=== PATIENT | female | born 1985 | race Caucasian/White ===

== ENCOUNTER 2022-08-23 15:01 | Outpatient (CLI) | payer OTHER, SELFPAY ==
--- NOTE | 2022-08-23 15:00 | CRLHL7_ITS ---
For Patients: As a result of the Cures Act, medical imaging exams and procedure reports are released immediately into your electronic medical record. You may view this report before your referring provider. If you have questions, please contact your health care provider. INDICATION: First trimester scan, establish dates. COMPARISON: None. TECHNIQUE: Real-time lainez-scale imaging of the pelvis was performed. FINDINGS: Sonographic imaging demonstrates a single living intrauterine gestation. The embryo demonstrates a regular cardiac rate measuring 180 beats per minute. The embryo`s crown-rump length measurement of 3.1 cm corresponds to a gestational age of 10 weeks 0 days with a sonographic due date of 03/21/2023. There is a normal-appearing yolk sac. There are no gross abnormalities noted within the embryo at this early state of development. The gestational sac has a normal appearance. There is a complex lower uterine segment perigestational hemorrhage measuring 2.3 x 1.2 x 2.4 cm. The amount of fluid within the sac appears appropriate for gestational age. The cervix is closed. The myometrium appears normal. The ovaries are of normal size. There are no suspicious fluid collections noted in the cul-de-sac. IMPRESSION: Single living intrauterine with sonographic gestational age 10 weeks 0 days and a sonographic due date 03/21/2023. Complex lower uterine segment subchorionic hemorrhage measuring 2.3 x 1.2 x 2.4 cm. Follow-up in 1-2 weeks suggested. Dictated by Calin Apodaca MD @ 08/25/2022 11:37:41 AM (Electronically Signed)
== END 2022-08-23 15:02 | disposition home or self-care (01) ==
LOC: US 15:02
PROVIDERS: Visit Provider Physician Assistant
DX: Z34.91 Encounter for supervision of normal pregnancy, unspecified, first trimester (principal); O20.9 Hemorrhage in early pregnancy, unspecified; Z3A.10 10 weeks gestation of pregnancy
CPT/HCPCS: 76817; 82306; 82607; 86592; 86703; 86762; 86787; 86803; 86850; 86900; 86901; 87086; 87340; 87491; 87591

== ENCOUNTER 2022-11-02 14:08 | Outpatient (CLI) | payer OTHER, SELFPAY | END 2022-11-02 14:09 | disposition home or self-care (01) | LOC: US 14:10 | PROVIDERS: Visit Provider Pediatrics Neonatal-Perinatal Medicine | DX: O09.522 Supervision of elderly multigravida, second trimester (principal); Z3A.20 20 weeks gestation of pregnancy | CPT/HCPCS: 76811 ==

== ENCOUNTER 2022-12-28 14:05 | Outpatient (CLI) | payer BC, SELFPAY | END 2022-12-28 14:06 | disposition home or self-care (01) | PROVIDERS: Visit Provider Obstetrics & Gynecology | DX: Z34.93 Encounter for supervision of normal pregnancy, unspecified, third trimester (principal); Z3A.28 28 weeks gestation of pregnancy | CPT/HCPCS: 86592 ==

== ENCOUNTER 2023-03-08 10:57 | Inpatient (IN) | payer BC, SELFPAY ==
[2023-03-08] VITALS (16 sets, daily range): BP systolic 98–156; BP diastolic 61–73; PULSE 58–76; RESP 16; TEMP 36.4–36.6; O2SAT 18–100
[2023-03-08 10:14] LABS: Amnisure Rom* POSITIVE
--- NOTE | 2023-03-08 12:22 | P.LDBA_ITS ---
Subjective History of Present Illness Narrative: Reshma is a 37 yo at 38 0/7 weeks gestation being admitted to Labor and Delivery for PROM that occurred at 1 am. Patient reports she was awoken from sleep to use the bathroom and had a gush of clear fluid on the way. She then noticed more leaking when she was returning to bed. She was not able to sleep so she did some work and her morning workout. During her workout routine she had a larger gush that she then thought she should call. She called about 6 am and presented around 9 am. She continues to leak clear fluid. She reports minor cramping but no regular contractions. Her full history and physical was dictated by RUSSELL Garza on 03/01/2023. Please see this for details. OB PROBLEM LIST 1. Clomid +IUI . Primary infertility, unexplained 2. AMA * Maternity T21: Negative * Level 2 ultrasound: Preliminary result by Dr. Real small echogenic intracardiac foci w/o any other markers, not noted in final report. * Recommend growth US at 32 weeks due to hx of COVID and AMA: 24%ile 3. History of asthma, no symptoms or medication use for several years 4. History of LEEP, 2010. Normal Pap with negative HPV 01/25/2021 5. Vegan diet * Normal hemoglobin, vitamin B12, and vitamin-D at 1st OB 6. Aspirin 81 mg starting at 12 weeks: AMA, 1st , history of preeclampsia/sister 7. Covid positive @ 15w 3d. Consider growth u/s @ 28-32 & 36 weeks. Plan growth at 34 weeks due to scheduling conflict: 02/08, 24%ile Growth at 38 weeks for hx of COVID can be considered. Flu shot: 08/23/2022 COVID vaccinated and booster x1 Tdap: 12/28/22 OB - Problem Based A/P Additional Plan (1) PROM (premature rupture of membranes): Status: Acute (2) 38 weeks gestation of : Status: Acute (3) AMA (advanced maternal age) multigravida 35+: Status: Acute (4) History of loop electrical excision procedure (LEEP): Status: Acute (5) History of asthma: Problem details: Has not had symptoms or needed medication in years. Status: Acute Plan ASSESSMENT:? 37 at 38 0/7 weeks gestation? complicated by:?IUI , AMA, hx of asthma, hx of leep, hx of COVID Labor type: Spontaneous, Early labor? Category 1 FHR pattern.?? Labor complicated by: PROM? GBS negative? ? PLAN:? 1. Routine intrapartum cares as ordered. Discussed options and recommendations. Reviewed 12 hours of expectant management vs starting medication to augment labor. She does not desire to start medication at this time. We did discuss expectant management for a max of 24 hours but would encourage medication augmentation after 12 hours. She desires to wait and wants to encourage labor without medication. Discussed nipple stim, activity, rest, and labor warm-up. 2. Monitoring per policy, intermittent? 3. Planning unmedicated . Desires water . Consent signed. Hep C negative. Candidate for analgesia of choice.?? 4. Patient encouraged to reposition and ambulate to promote physiologic labor and .? 5. Anticipate ? Delivery/Labor/Induction Plan Plan: expectant management OB Exam Physical Exam Vital signs: Temp Pulse BP Pulse Ox 97.9 F 69 119/71 100 03/08/23 11:07 03/08/23 09:24 03/08/23 09:24 03/08/23 09:27 Narrative: Vitals Reviewed Constitutional:? Alert and oriented x3 HEENT:? Normocephalic, atraumatic Neck:? Supple Lungs:? Clear to auscultation bilaterally Heart:? Regular rate and rhythm, no murmur, rub or gallop Abdomen:? Soft, nontender, and gravid. Vertex by Dc's, confirmed with cervical exam. Extremities:? No edema or erythema Cervix: 2 cm/70%/-2 station/vertex NST: 125 bpm/moderate variability/15x15 accelerations/No decelerations/irregular mild contractions
[2023-03-08 22:45] LABS: Basophils Absolute Auto 0.04 K/uL (0.00-0.30); Basophils Percent Auto 0.5 % (0.0-3.0); Eosinophils Absolute Auto 0.08 K/uL (0.00-0.50); Hematocrit 33.6 % (33.0-51.0); Hemoglobin* 11.6 gm/dL (12.0-16.0); Immature Granulocytes Pct Auto 1.3 %; Lymphocytes Absolute Auto 1.93 K/uL (0.90-2.90); Lymphocytes Percent Auto 24.5 % (20-44); Mean Corpuscular HGB Conc 35 gm/dL (32-36); Mean Corpuscular Hemoglobin 31 pg (26-34); Mean Corpuscular Volume 90 fL (80-100); Monocytes Percent Auto 6.4 % (0.0-11.0); Neutrophils Absolute Auto 5.22 K/uL (1.7-7.0); Neutrophils Percent Auto 66.3 % (42.0-72.0); Platelet Count* 160 K/uL (140-440); RDW Coefficient of Variation % 12.2 % (11.5-15.5); Red Blood Count 3.74 m/uL (4.00-5.20); White Blood Count* 7.87 K/uL (4.50-11.00)
[2023-03-08] MEDS: OXYTOCIN 30 unit/500 ML in NS 30 UNIT/500 ML BAG IVPB (23:04)
[2023-03-08] MEDS: LACTATED RINGERS 1000 ML 1,000 ML 125 ML IV (23:04)
--- NOTE | 2023-03-08 23:18 | PM.OBPNL ---
Subjective Date Seen: 03/08/23 Narrative: Reshma is a 37 yo at 38 0/7 weeks gestation that was admitted earlier for PROM of clear fluid that occurred at 0100 am on 03/08. She has been very active today by walking, doing labor warm up, lunges, and miles circuit. She reports feeling mild cramping but not contractions. She is coping well with labor pain/contractions. She is currently being supported by her partner. She is hesitant about using medication to encourage labor and has questions about its use and how it may impact her labor or her having a waterbirth. Objective Exam: Objective: Constitutional: Alert and oriented x3, no distress, coping well Vital signs stable, see nurse documentation Abdomen: gravid, contractions palpate mild with contractions and soft between Cervix: 3 cm/80%/-1 station/vertex, per RN. NST: 125 bpm/moderate variability/15 x 15 accelerations/no decelerations/irregular contractions Vital Signs: Last Vital Signs Temp 98 F 03/08/23 23:00 Pulse 72 03/08/23 23:12 Resp 16 03/08/23 23:00 BP 98/61 03/08/23 23:12 Pulse Ox 18 L 03/08/23 13:17 Assessment Assessment: early labor Plan Plan: ASSESSMENT:? 37 at 38 0/7 weeks gestation? complicated by:?IUI , AMA, hx of asthma, hx of leep, hx of COVID Labor type: Spontaneous, Early labor? Category 1 FHR pattern.?? Labor complicated by: PROM? GBS negative? ? PLAN:? 1. Routine intrapartum cares as ordered. Reviewed recommendations of Pitocin or Cyotec vs expectant management. Had offered 12-24 hours but encouraged her to consider medication augmentation at 12 hours if she was not feeling contractions or they were mild. She declined augmentation and preferred to encourage labor with hand expression and position changes. I discussed this again with her earlier this evening, about 5pm, before being pulled away. At that time, she had preferred to continue expectant management. We again had this conversation about 1030, again she was hesitant and partner had some questions about impact on pain and waterbirth. We discussed risk and benefits. I encouraged her to consider starting Pitocin. She agrees with plan but desires for us to adjust slowly. 2. Monitoring per policy, continuous with Pitocin? 3. Planning unmedicated . Desires water . Consent signed. Hep C negative. Candidate for analgesia of choice if desired.?? 4. Patient encouraged to reposition and ambulate to promote physiologic labor and .?I encouraged her to rest for the night, even with augmentation. Offered her medication for rest, she declined. 5. Anticipate ?
[2023-03-08 23:26] LABS: Slide Review Reflex No
[2023-03-09] VITALS (25 sets, daily range): BP systolic 90–126; BP diastolic 55–82; PULSE 56–103; RESP 16–20; TEMP 36.4–37; O2SAT 97–98
[2023-03-09] MEDS: LANOLIN CREAM 1 APPLIC TOPICAL (00:26)
--- NOTE | 2023-03-09 06:52 | PM.OBPNL ---
Subjective Date Seen: 03/09/23 Narrative: Reshma is a 37 yo G1 at 38 1/7 is coping well with labor pain/contractions. She requested to get into the tub. Patient declined to get into bed for cervical exam prior to entering tub but allowed RN to check her while standing. RN reported that fetus was +1 station but that she could not feel cervix so she called her complete. She entered the tub at 0528. She denied feeling any pressure at that time but that contractions had become more regular and intense throughout the night. After entering the tub she reported things were getting more painful, she started to panic about her pain. She is currently being supported by partner, Tacos. RN and CNM also at tubside. She began feeling intermittent pressure with contractions about 0630 am. She denies urge to push at this time. Understands the current plan of care. Questions answered to her satisfaction. She would like to continue with laboring in the tub for comfort and pain management. Objective Exam: Objective: Constitutional: Alert and oriented x3, moderate distress, coping well Vital signs stable, see nurse documentation Abdomen: gravid, contractions palpate strong with contractions and soft between Cervix: unable to feel cervix, +1 station per RN. I assume she was not complete based on description of what patient was feeling and her response. NST: bpm/[] variability/[]accelerations/[]decelerations/[]contractions Vital Signs: Last Vital Signs Temp 98.3 F 03/09/23 06:04 Pulse 87 03/09/23 06:04 Resp 18 03/09/23 06:04 BP 111/70 03/09/23 06:04 Pulse Ox 18 L 03/08/23 13:17 Plan Plan: ASSESSMENT:? 37 at 38 0/7 weeks gestation? complicated by:?IUI , AMA, hx of asthma, hx of leep, hx of COVID Labor type: Spontaneous, Active labor? Category 1 FHR pattern.?? Labor complicated by: PROM greater than 24 hours? GBS negative? ? PLAN:? 1. Routine intrapartum cares as ordered. Pitocin for labor augmentation, continue per protocol. 2. Monitoring per policy, continuous with Pitocin. 3. Planning unmedicated . Desires water . Consent signed. Hep C negative. Candidate for analgesia of choice if desired. 4. Patient encouraged to reposition and ambulate to promote physiologic labor and .?I encouraged her to rest for the night, even with augmentation. 5. Anticipate
[2023-03-09] MEDS: LACTATED RINGERS 1000 ML 1,000 ML 125 ML IV (07:09)
[2023-03-09] MEDS: LIDOCAINE 1 % PF 30 ML INJECTION (13:25)
--- NOTE | 2023-03-09 15:14 | W.PM.OBVAGDE ---
OB Procedure Vag Delivery Mother Details Mother Details: The patient is a 37 year-old, 1, now Para 1, admitted on 03/08/23 at 38.1 Days gestation. she presented after SROM at home around 0100 on 03/08/23 with clear fluids. She was not ishan on admission and was hesitant to start Pitocin. She did decided to augment her labor with Pitocin around 2300 on 03/08. She progressed in labor and was thought to be complete by RN exam around 0530 this morning. The RN exam was performed standing and was not definite. She did not feel any regular urge to push for a long while and felt a lot of pain in her back. She eventually was able to push effectively and pushed for about 3 hours. She labored and pushed in multiple positions including the tub, toilet, birthing stool, and standing. She ultimately delivered in the tub. : 1 Para: 1 Weeks Gestation: 38.1 Admission Date: 03/08/23 Additional Details Amniotic Membrane Status: SROM Amniotic Membrane Rupture Date: 03/08/23 Amniotic Membrane Rupture Time: 01:30 Amniotic Membrane Fluid Description: Clear Analgesia/Anesthesia Type: None Waterbirth: Yes Pitcoin: Yes (augmentation and ) Intrapartal Events: Labor Augmentation, ROM >18 Hours and Prolonged 2nd Stage >2.5 Hrs Delivery augmentation: pitocin Labor Onset: 03:30 Complete: 08:48 Pushin:48 Heart: heart tones during second stage were baseline 135-140 with accelerations and good variability. Variable decelerations were noted at the end of pushing. Delivery Details Delivery Date: 03/09/23 Delivery Time: 12:49 Route of delivery: Gender: Female Viability: Alive; Heart Rate Present Position at Delivery: OA Delivery Details: Delivered over intact perineum via spontaneous vaginal delivery. was placed on maternal abdomen.? Cord was clamped and cut after a >5 minute delay. Nose and mouth were bulb suctioned.? weight 5lb 14oz. 1 Minute Interval Total Score: 8 5 Minute Interval Total Score: 9 Additional Details Shoulder Dystocia: No Placenta Delivery Time: 13:10 Placental Delivery Description: Spontaneous Delivery repair: Vicryl Procedure Done: Global Blood Loss: 100 Laceration: Perineal - 2nd Degree (and a left labial laceration) Blood Loss Measurement Type: QBL (50ml QBL and 50ml EBL in tub) Bakri Used: No Sponge/Need Count Correct: Yes Cord Vessel Description: 3 Vessels, Nuchal Cord, Loose and Delivered through Event Summary Status: Mother and were stable after delivery. Disposition: floor
[2023-03-09] MEDS: IBUPROFEN 600 MG TABLET PO ×2 (16:01→22:19)
[2023-03-09] MEDS: ACETAMINOPHEN 500 MG TABLET 1000 MG PO (18:21)
[2023-03-10 00:33] VITALS: BP 101/66; PULSE 70; RESP 18; TEMP 36.6; O2SAT 97
[2023-03-10] MEDS: ACETAMINOPHEN 500 MG TABLET 1000 MG PO ×2 (00:35→06:08)
[2023-03-10] MEDS: IBUPROFEN 600 MG TABLET PO ×3 (04:32→19:24)
[2023-03-10 05:44] VITALS: BP 104/66; PULSE 70; RESP 16; TEMP 36.3; O2SAT 98
[2023-03-10 07:20] VITALS: BP 102/67; PULSE 56; RESP 16; TEMP 36.4; O2SAT 97
--- NOTE | 2023-03-10 12:14 | P.OBPN_ITS ---
OB - PN:Subj Subjective Date Seen: 03/10/23 Patient comments OB post-: no complaints, pain well controlled, perineal pain, tolerating diet and flatus present [place] infant status: [place] feeding status: exclusively Narrative: Reshma is a 37 y.o. who was admitted to L & D for PROM. ?She had an uncomplicated NVD.?The patient feels well. ?The pain is well controlled with current medications. ?She has no new complaints. ?She is breast feeding and reports things are going ok. Her nipples are very sore from pumping for nipple stimulation to encourage labor yesterday. She is using cream and has the hydrogel pads to use as needed.? the patient has done well.? Vitals have been stable.? She has remained afebrile.? Has a good appetite, is tolerating a general diet. ?She is voiding without difficulty.? She is passing gas and has not had a bowel movement.? She is ambulating and denies any dizziness.? Has scant amount of rubra lochia. OB - PN: Obj Exam Physical Exam: Vital signs: Temp Pulse Resp BP Pulse Ox O2 Del Method 97.3 F L 70 16 104/66 98 Room Air 03/10/23 05:44 03/10/23 05:44 03/10/23 05:44 03/10/23 05:44 03/10/23 05:44 03/10/23 05:44 Narrative: GENERAL APPEARANCE:? normal affect, alert, no distress MOOD:? appropriate CHEST:? clear to auscultation HEART:? regular rate and rhythm ABDOMEN:? soft, non-tender the uterine fundus is 1 below Umbilicus, Midline and is appropriate for the stage of recovery. PERINEUM:? mild edema of the perineum, there is a Perineal Laceration,?2nd degree, that is healing well. EXTREMITIES:? normal and no edema OB - PN: A/P Delivery Assessment and Plan (1) care and examination immediately after delivery: Status: Acute (2) Normal vaginal delivery: Status: Acute (3) Lactating mother: Status: Acute Plan day: 1 Plan: routine care Comments: Routine care Lactating mother. May see if desired. Does have some nipple breakdown, reviewed ways to prevent further injury. Continue to work on good latching technique. Anticipate discharge tomorrow, 03/11.
[2023-03-10 12:45] VITALS: BP 103/68; PULSE 55; RESP 16; TEMP 36.6; O2SAT 97
[2023-03-10] MEDS: DOCUSATE SODIUM 100 MG CAPSULE PO (12:47)
[2023-03-10 17:00] VITALS: BP 104/68; PULSE 62; RESP 16; TEMP 36.4; O2SAT 97
[2023-03-11 01:25] VITALS: BP 119/78; PULSE 55; RESP 16; TEMP 36.6
--- NOTE | 2023-03-11 09:15 | PM.OBDSVD1 ---
DS: Providers Provider Date Seen: 03/11/23 Date of admission: 03/08/23 10:57 Primary care physician: Not a Local Provider Admitting Clinician: Neida Parra CNM Attending Physician on discharge: Neida Parra CNM Date of Discharge: 03/11/23 DS: Diagnosis Discharge Diagnosis (1) Lactating mother: Status: Acute (2) care and examination immediately after delivery: Status: Acute Exam Narrative: Exam Narrative: Discharge Examination? GENERAL APPEARANCE:? normal affect, alert, no distress? MOOD:? appropriate? CHEST:? clear to auscultation and percussion? HEART:? regular rate and rhythm? ABDOMEN:? soft, non-tender the uterine fundus is 2 cm Below Umbilicus, Midline and is appropriate for the stage of recovery. ? PERINEUM:? mild edema of the perineum, there is a 2nd degree that is healing well.? EXTREMITIES:? normal and no edema? Patient has no complaints? No active bleeding?? Doing well? She is requesting discharge home.? Const: Vital Signs, click to edit/add: Vital Signs - 24 hr 03/10/23 12:45 03/10/23 17:00 03/11/23 01:25 Temperature 98 F 97.5 F L 97.8 F Pulse Rate [Pulse Oximeter] 55 L 62 55 L Respiratory Rate 16 16 16 Blood Pressure [Le ft Arm] 103/68 104/68 119/78 Pulse Oximetry 97 97 Oxygen Delivery Me thod Room Air Room Air Room Air OB - DS: Summary Hospital Course Hospital Course: Patient is a year old, G 1 now P 1? admitted on 03/08/23 at 38 Weeks, 0?Days gestation for PROM.? She had an uncomplicated vaginal delivery.? She delivered a viable female .? She is breast feeding and reports things are well.?She is experiencing nipple soreness and is working on improving latch and using a nipple shield for feedings. the patient has done well.? Her pain is well controlled with current medications.? She has no new complaints.? Vitals have been stable. She has remained afebrile. She is voiding without difficulty. She is passing gas and has had a bowel movement. She is ambulating and denies any dizziness. She is planning condoms for control. Peripartum Data Infant delivery method: Vaginal Laceration description: Perineal - 2nd Degree Episiotomy description: None complications: none Gender: Female Infant Discharge Plan: Home Status at Discharge Functional status at discharge: independent ambulation Overall status at discharge: patient is progressing back to baseline Time Spent with Patient Time attestation: Total time spent providing and/or coordinating discharge services: Discharge Plan Discharge Disposition: Home, Self-Care Date of Admission: 03/08/23 10:57 Attending Provider on Discharge: Lois Darnell Primary Care Provider: Provider,Not a Local Condition: Stable Anticipated Discharge Date/Time: 03/11/23 14:00 Discharge Medications: New docusate sodium 100 mg Capsule 100 mg PO DAILY Qty: 60 0RF Rx Instructions: Take 1-2 tablets daily as needed for constipation. ibuprofen 600 mg Tablet 600 mg PO Q6H PRNQty: 20 0RF Continued calcium carbonate [Calcium 600] 600 mg calcium (1,500 mg) tablet 600 mg PO QDAY DHA 200 mg capsule 200 mg PO DAILY omega-3 acid ethyl esters 1 gram capsule 1 cap PO QDAY cholecalciferol (vitamin D3) 62.5 mcg (2,500 unit) capsule 62.5 mcg PO DAILY [id number] Tablet 1,000 tab PO DAILY Discontinued ferrous sulfate [Feosol] 325 mg (65 mg iron) tablet 325 mg PO QDAY aspirin [Adult Low Dose Aspirin] 81 mg tablet,delayed release (DR/EC) 81 mg PO QDAY Discharge Orders: Discharge Order (Routine); Ordered 03/11/23 Ordered By: Lois Darnell Additional Instructions: Discharge instructions were reviewed with the patient including signs and symptoms of infection and home going medications.? Lifting Restrictions: 20 pounds for 6? weeks? ?? Do not drive while taking narcotic pain meds.? Off Work or School for 6 weeks.? ?? Symptoms to report to doctor:? -Bleeding that saturates more than one pad per hour? -Passing clots larger than the size of a golf ball? -Pain not relieved by prescribed medication? -Fever above 100.4 degrees Fahrenheit? -A foul vaginal odor? -Difficulty in emotions, mood and functions? -Thoughts of hurting yourself and/or ? -Painful, reddened area in your breast? -Any drainage, redness or tenderness in your IV/epidural site? -Severe headache that doesn't improve after taking medications? -Changes in vision, including temporary loss of vision, blurred vision, and/or light sensitivity? -Upper abdominal pain (usually under ribs on the right side)? -Decrease in urination or painful, frequent urinating? -Chest pain? -Shortness of breath? -Tenderness or pain with redness and/swelling in the calf(s) of your leg? ?? Follow Up in clinic in 2 and 6 weeks.? ?? consultation services are available to all mothers and babies for the first year after delivery.? To make an appointment, please call [phone].? Activity Level: Activity as Tolerated Discharge Diet: Regular Follow Up Appointments: Provider,Not a Local [Primary Care Provider] - [facility] [Provider Group] Devorah Nunez CNM [Certified Nurse Career Services Director] - Neida Parra CNM [Certified Nurse Career Services Director] - Lois Darnell CNM [Certified Nurse Career Services Director] - Forms: MyHealth Info Instructions
[2023-03-11 10:10] VITALS: BP 116/70; PULSE 58; RESP 16; TEMP 36.8; O2SAT 97
[2023-03-11] MEDS: IBUPROFEN 600 MG TABLET PO (11:27)
[2023-03-11] MEDS: DOCUSATE SODIUM 100 MG CAPSULE PO (11:28)
[2023-03-11] MEDS: ACETAMINOPHEN 500 MG TABLET 1000 MG PO (15:16)
== END 2023-03-11 15:50 | disposition home or self-care (01) | DRG 560 ==
LOC: OB OUT 03-09 10:18
PROVIDERS: Admitting Provider Advanced Practice Midwife; Visit Provider Advanced Practice Midwife
DX: O42.02 Full-term premature rupture of membranes, onset of labor within 24 hours of rupture (principal); O70.1 Second degree perineal laceration during delivery; Z3A.38 38 weeks gestation of pregnancy; Z37.0 Single live birth
CPT/HCPCS: 36415; 84112; 85025; 86850; 86900; 86901; 99213; A9270; J2001; J7120

== ENCOUNTER 2023-03-15 13:40 | Outpatient (CLI) | payer BC, SELFPAY ==
--- NOTE | 2023-03-15 17:00 | W.PM.LAC.MC ---
Consult Note - Mom Date of Visit Date of visit: 03/15/23 specification consultant: Maday Lambert Visit Code: Visit Patient's Information Phone number: [phone] : 1 Para: 1 Allergies No Known Drug Allergies Allergy (Verified 03/09/23 17:27) Mother's Medical History: Medical History (Updated 03/19/23 @ 00:00 by Background Daemon) History of asthma ?Z87.09 - Personal history of other diseases of the respiratory system (ICD-10) AMA (advanced maternal age) multigravida 35+ ?O09.529 - Supervision of elderly multigravida, unspecified trimester (ICD-10) Infertility Clomid ?O09.00 - Supervision of with history of infertility, unspecified trimester (ICD-10) Work Plans: returns to work in 3 months Delivery Information Delivery type: Vaginal Weeks Gestation: 38.1 Gestational Age: AGA Weight: 2.66 kg Discharge Weight: 2.442 kg Baby's Information Baby's Age at Visit: 6 days Baby's Provider or Clinic: Dr. Nunez Jaundice: Yes (to abdomen) Reason for Consult Reason for Consult: nipple shield, nipple damage Past Experience Past Experience: No Current Frequency of Day Feedings: about every three hours around the clock Both Breasts: Yes Suck: strong Latch: fairly wide Length of Time: 10 - 20 minutes total Pumping Pumping: No Supplementing EMB Supplement: No Formula Supplement: No Baby Elimination Number of Wet Diapers a Day: every feeding Number of BM a Day: at least every other feeding; yellow and seedy Breast/Nipple Condition Breast Information: WNL Engorgement: Yes (resolving) Maternal Nipple Condition - Left: Short and Cracking/ Fissures (scabbing) Maternal Nipple Condition - Right: Short and Cracking/ Fissures (scabbing) Sore Nipples: Yes Interventions for Sore Nipples: Other (mother love cream) Onsite Pre-Feed weight: 2.526 kg Post-Feed weight: 2.59 kg Milk Transferred (mL): 64 Assessments/Interventions Assessments/Interventions: Met with mom and this now 6 day old ex- term AGA baby for consult.? Mom reports her nipples are damaged but she thought they were improving until last night when she noticed the left one was bleeding after baby finished nursing.? She's using a nipple shield and baby nurses about every 2 - 3 hours.? Mom offers both sides and nursing sessions take 10 - 20 minutes total.? She hasn't started pumping but will use a medical insurance collector for the side baby isn't nursing on; states her left side is the better national investigative producer.? POC are not supplementing with EBM or formula. Breasts are WNL- symmetrical with rounded lower quadrants, intramammary distance is < 1.5 inches.? Nipples are short and flat but allie with stimulation.? Both with stage II damage that is beginning to scab (baby pulled the scabs off while nursing).? Baby has gained 15 grams/day since her last visit on 03/12 and is now 5% below BW at 6 DOL.? She did not have a caput/cephalohematoma at delivery.? Per POC she prefers to turn her head to the left but has equal ROM when moving her extremities.? Her palate is WNL.? Her upper frenulum is a little tight- gums pro when her upper lip is flanged.? She has a strong suck on a finger but her tongue doesn't consistently extend past the gum line.? She has fairly good lateralizations with minimal canoeing.? The lower frenulum looks to be WNL. Mom attempted a few times to latch baby the left side without the shield, but baby would only suckle a few times and then loose the latch.? She had a wide latch with the shield but wasn't very aggressive at the breast and needed quite a bit of stimulation to stay awake.? POC reports she's pretty sleepy for most feedings.? After 10 - 15 minutes mom took her off stating she often stops with one side if she falls asleep so she was weighed and had transferred 44 ml.? Dad was shown a few exercises to help her extend her tongue over the gumline and this really woke baby back up so mom offered the right side.? She started with the shield and took her off after a minute or so but baby lost the latch after about 10 suckles on this side as well.? Mom replaced the shield and after a 5 - 10 nursing session she was weighed and had transferred 20 ml for a total of 64 ml. Plan: 1. Mom will continue to nurse on demand, offering both sides and not letting her go more than three hours during the day and four at night.? Suggested she practice nursing without the shield but it's ok if she needs it.? Work to keep baby active at the breast and ok to be more aggressive with waking her between sides. 2. No medical need to supplement. 3. No medical need to pump.? Suggested she hand express/Ha[place]aa/use electric pump to express only to comfort prn after nursing.? Flange size suggestions and handout given during admission. 4. Encouraged POC to try the exercises 3 - 5 times/day as they will help her extend her tongue over the gum line more consistently and hopefully this will help the latch. 5. Reviewed saline rinse, the Sovereign Silver spray and if desired silverettes for her nipple damage. 6. Will f/u for a 2 week WCC and I'll f/u by phone o 03/22/23. ? Meds Home Medications and Allergies Home Medications Medication Instructions Recorded Confirmed Type cholecalciferol (vitamin D3) 62.5 62.5 mcg PO DAILY 08/23/22 03/08/23 History mcg (2,500 unit) capsule docosahexaenoic acid 200 mg 200 mg PO DAILY 08/23/22 03/08/23 History capsule ( DHA) [id number] tablet 1,000 tab PO DAILY 08/23/22 03/08/23 History omega-3 acid ethyl esters 1 gram 1 cap PO QDAY 08/23/22 03/08/23 History capsule calcium carbonate 600 mg calcium 600 mg PO QDAY 11/02/22 03/08/23 History (1,500 mg) tablet (Calcium) Allergies Allergy/AdvReac Type Severity Reaction Status Date / Time No Known Drug Allergies Allergy Verified 03/09/23 17:27
== END 2023-03-15 13:41 | disposition home or self-care (01) ==
PROVIDERS: Visit Provider Advanced Practice Midwife
DX: Z39.1 Encounter for care and examination of lactating mother (principal)
CPT/HCPCS: 99211

== ENCOUNTER 2024-03-06 12:58 | Outpatient (REF) | payer BC, SELFPAY ==
[2024-03-08 09:26] LABS: Anti-Mullerian Hormone 1.757 ng/mL (0.176-11.705)
== END 2024-03-06 12:59 | disposition home or self-care (01) ==
LOC: NPINS 12:58
PROVIDERS: Physician Assistant
DX: N97.9 Female infertility, unspecified (principal)
CPT/HCPCS: 83520; 84443

== ENCOUNTER 2024-04-24 08:09 | Outpatient (CLI) | payer BC, SELFPAY ==
--- NOTE | 2024-04-24 08:15 | CRLHL7_ITS ---
For Patients: As a result of the Century Cures Act, medical imaging exams and procedure reports are released immediately into your electronic medical record. You may view this report before your referring provider. If you have questions, please contact your health care provider. Indication: Follicle study Technique: Transvaginal sonographic evaluation of the pelvis was performed as per protocol for follicle evaluation Comparison: None Findings: The uterus measures 6.6 x 3.6 x 4.9 centimeters. The endometrium measures 4.3 millimeters. The right ovary measures 3.0 x 1.4 x 2.1 centimeters. Normal blood flow by Doppler The left ovary measures 3.8 x 2.0 x 3.3 centimeters. Normal blood flow by Doppler No free fluid in the cul-de-sac Right ovary: 1.2 centimeter follicle. 0.8 centimeter follicle. One follicle less than 1 centimeter. The left ovary: 1.8 centimeter follicle. 1.4 centimeter follicle. 1.3 centimeter follicle. Two follicles less than 1 centimeter Impression: Follicle study as above Dictated by Willy Bowen MD @ 04/24/2024 9:45:18 AM (Electronically Signed)
== END 2024-04-24 08:10 | disposition home or self-care (01) ==
LOC: US 08:10
PROVIDERS: Visit Provider Obstetrics & Gynecology Reproductive Endocrinology
DX: N97.9 Female infertility, unspecified (principal); N83.01 Follicular cyst of right ovary; N83.02 Follicular cyst of left ovary
CPT/HCPCS: 76830

== ENCOUNTER 2024-05-21 13:55 | Outpatient (CLI) | payer BC, SELFPAY ==
[2024-05-21 14:51] LABS: HCG Quantitative* < 2.39 mIU/mL
== END 2024-05-21 13:56 | disposition home or self-care (01) ==
PROVIDERS: Visit Provider Student in an Organized Health Care Education/Training Program
DX: O46.91 Antepartum hemorrhage, unspecified, first trimester (principal)
CPT/HCPCS: 36415; 84702

== ENCOUNTER 2024-06-20 09:10 | Outpatient (CLI) | payer BC, SELFPAY ==
--- NOTE | 2024-06-20 09:15 | CRLHL7_ITS ---
For Patients: As a result of the Century Cures Act, medical imaging exams and procedure reports are released immediately into your electronic medical record. You may view this report before your referring provider. If you have questions, please contact your health care provider. INDICATION: Infertility. COMPARISON: Ultrasound of the pelvis from 04/24/2024 FINDINGS: Transvaginal ultrasound examination of the female pelvis was performed. The uterus is anteverted with no evidence of mass. It measures 5.6 x 3.7 x 4.6 cm. The endometrial lining is normal in thickness at 8 mm. The ovaries are normal in appearance and size, the right measuring 2.9 x 2.4 x 2.7 cm and the left measuring 4.0 x 2.5 x 2.6 cm. There is normal color and pulse doppler flow in both ovaries. There is no sign of free fluid in the pelvis. Right ovary: Dominant follicle measuring 2.0 x 1.3 x 2.2 centimeters, volume of 2.9 cc. Second right ovarian follicle measuring 1.6 x 1.9 x 1.9 centimeters, volume 1.6 cc Left ovary: Largest follicle measures 1.5 x 1.4 x 1.7 centimeters, volume of 1.8 cc. Second left ovarian follicle measures 1.5 x 1.4 x 1.5 centimeters, volume 1.6 cc. IMPRESSION: 1. Ovarian follicles as described above. 2. Otherwise normal ultrasound examination of the female pelvis using transvaginal technique. Dictated by Jason Miller MD @ 06/22/2024 12:23:37 PM (Electronically Signed)
== END 2024-06-20 09:11 | disposition home or self-care (01) ==
LOC: US 09:12
DX: N97.9 Female infertility, unspecified (principal); N83.01 Follicular cyst of right ovary; N83.02 Follicular cyst of left ovary
CPT/HCPCS: 76830

== ENCOUNTER 2024-07-17 11:16 | Outpatient (CLI) | payer BC, SELFPAY ==
--- NOTE | 2024-07-17 11:15 | CRLHL7_ITS ---
For Patients: As a result of the Century Cures Act, medical imaging exams and procedure reports are released immediately into your electronic medical record. You may view this report before your referring provider. If you have questions, please contact your health care provider. INDICATION: Female infertility TECHNIQUE: Ultrasound pelvis transabdominal and transvaginal for better assessment or to better visualize the endometrium. Real-time sonographic images with spectral and color Doppler imaging of the ovaries were obtained. COMPARISON: Pelvic ultrasound 06/20/2024. FINDINGS: Uterus: 7.2 x 3.7 x 4 cm. Normal echotexture of the myometrium. No masses. Endometrium: Transvaginal imaging was performed to better evaluate the endometrium. Endometrial thickness measures 5.4 mm. No sign of endometrial mass or fluid. The right ovary measures 3.1 x 1.9 x 2.2 centimeters. The dominant follicle measures 1.8 x 1.6 x 1.7 centimeters. A smaller follicle measures 1 x 0.6 x 0.9 centimeters. There are 3 total visualized follicles. Ovarian volume is 6.5 mL. The left ovary measures 4.4 x 3.1 x 3.9 centimeters with approximally 9 total follicles. The largest follicle measures 2.9 x 2.4 x 2.6 centimeters. There are 3 other follicles measuring greater than a centimeter and 5 subcentimeter follicles. Ovarian volume is 27.6 mL. Normal arterial and venous blood flow is demonstrated in both ovaries. Cul-de-sac: No significant free fluid. IMPRESSION: There are 3 total follicles in the right ovary and 9 follicles in the left ovary, increased compared to prior. Normal uterus with normal endometrial thickness. Dictated by Josey Gallegos MD @ 07/17/2024 12:32:35 PM (Electronically Signed)
== END 2024-07-17 11:17 | disposition home or self-care (01) ==
LOC: US 11:16
PROVIDERS: Visit Provider Student in an Organized Health Care Education/Training Program
DX: Z31.41 Encounter for fertility testing (principal); N83.01 Follicular cyst of right ovary
CPT/HCPCS: 76830

== ENCOUNTER 2024-08-16 10:42 | Outpatient (CLI) | payer BC, SELFPAY ==
--- NOTE | 2024-08-16 10:45 | CRLHL7_ITS ---
For Patients: As a result of the Century Cures Act, medical imaging exams and procedure reports are released immediately into your electronic medical record. You may view this report before your referring provider. If you have questions, please contact your health care provider. INDICATION: Infertility. COMPARISON: 07/17/2024 TECHNIQUE: Endovaginal grayscale and color doppler pelvic ultrasound. FINDINGS: LMP: 08/06/2024 Uterus: Measures 4.3 x 3.9 x 7.3cm. Unremarkable. Endometrial stripe: Measures 7mm. Uniform in thickness. Trilaminar appearance. Right Ovary: Measures 3.4 x 2.5 x 3.8cm and 16mL. 27 mm dominant follicle. Estimated number of follicles <10 mm: 4. Blood flow is demonstrated within the right ovary on color Doppler. Left Ovary: Measures 3.9 x 2.5 x 6.1cm and 31mL. 39 mm dominant follicle. Two smaller follicles are noted measuring 28 mm and 18 mm in greatest dimension. Estimated number of follicles less than 10 mm: 4. Blood flow is demonstrated in the left ovary on color Doppler. Pelvic fluid: No significant pelvic ascites. IMPRESSION: 1. 4 total follicles in the right ovary including a 27 mm dominant follicle. 2. 7 total follicles in the left ovary including a 39 mm dominant follicle. Two additional follicles larger than 10 mm are noted measuring 28 mm and 18 mm. Dictated by Gilles Wheat MD @ 08/16/2024 12:20:24 PM (Electronically Signed)
== END 2024-08-16 10:43 | disposition home or self-care (01) ==
LOC: US 10:43
PROVIDERS: Visit Provider Student in an Organized Health Care Education/Training Program
DX: N97.9 Female infertility, unspecified (principal); N83.01 Follicular cyst of right ovary; N83.02 Follicular cyst of left ovary
CPT/HCPCS: 76830